=== PATIENT | female | born 1980 | race Caucasian/White ===

== ENCOUNTER 2018-05-19 11:02 | Emergency (ER) | payer OTHER ==
[2018-05-19 11:53] VITALS: BP 121/77
[2018-05-19] MEDS ORDERED: Ondansetron ODT TAB* 4 MG PO ONE (11:56)
[2018-05-19] MEDS ORDERED: NS 0.9% 1000 ML** 1,000 ML IV ONE (11:57)
[2018-05-19] MEDS ORDERED: diPHENhydraMINE IV* 50 MG in NS 0.9% 50 ML* 50 ML IVPB ONE (12:08)
[2018-05-19] MEDS ORDERED: diPHENhydraMINE IV* 50 MG/ML 1 ml VIAL (BENADRYL) ONE (12:22)
--- NOTE | 2018-05-19 13:01 | UC ---
Headache HPI - HPI Summary HPI Summary: Pt c/o sudden onset of headache that began when she woke this mrmoisés. Pt has hx of migraines but has not had one "in years". - History Of Current Complaint Chief Complaint: UCHeadache Stated Complaint: HEADACHE Time Seen by Provider: 05/19/18 11:55 Hx Obtained From: Patient Hx Last Menstrual Period: 05/01/18 ?: No Onset/Duration: Sudden Onset, Lasting Hours, Still Present Onset Of Symptoms: Sudden, Still Present Initially Headache Was: Moderate Currently Pain Is: Moderate Pain Intensity: 8 Character: Dull, Pressure, Typical Headache, Migraine Location of Headache: Diffuse, Frontal Aggravating Factor(s): Bright Lights Allevating Factor(s): Rest Associated Signs And Symptoms: Positive: Nausea - Risk Factors SAH Risk Factors: Negative Meningitis Risk Factors: Negative SDH Risk Factors: Negative Temporal Arteritis Risk Factors: Negative - Allergies/Home Medications Allergies/Adverse Reactions: Allergies Allergy/AdvReac Type Severity Reaction Status Date / Time NSAIDS (Non-Steroidal Allergy See Comment Verified 05/19/18 11:51 Anti-Inflamma Penicillins Allergy Hives Verified 05/19/18 11:51 PMH/Surg Hx/FS Hx/Imm Hx Previously Healthy: Yes Neurological History: Migraine - Surgical History Surgical History: Yes Surgery Procedure, Year, and Place: tubal. tonsillectomy - Family History Known Family History: Positive: Cardiac Disease - Social History Occupation: Employed Full-time Lives: With Family Alcohol Use: Occasionally Substance Use Type: None Smoking Status (MU): Heavy Every Day Tobacco Smoker Type: Cigarettes Amount Used/How Often: 1/2-1 PPD Have You Smoked in the Last Year: Yes Review of Systems All Other Systems Reviewed And Are Negative: Yes Constitutional: Positive: Negative Skin: Positive: Negative Eyes: Positive: Photophobia ENT: Positive: Negative Respiratory: Positive: Negative Cardiovascular: Positive: Negative Gastrointestinal: Positive: Negative Genitourinary: Positive: Negative Motor: Positive: Negative Neurovascular: Positive: Negative Musculoskeletal: Positive: Negative Neurological: Positive: Headache Psychological: Positive: Negative Is Patient Immunocompromised?: No Physical Exam Triage Information Reviewed: Yes Appearance: Ill-Appearing, Pain Distress Vital Signs: Initial Vital Signs Temp 98.2 F 05/19/18 11:46 Pulse 57 05/19/18 11:46 Resp 18 02/27/19 11:46 BP 121/77 05/19/18 11:46 Pulse Ox 100 05/19/18 11:46 Vital Signs Reviewed: Yes Eye Exam: Normal, Other - PERRLA ENT Exam: Normal Dental Exam: Normal Neck exam: Normal Respiratory Exam: Normal Cardiovascular Exam: Normal Musculoskeletal Exam: Normal Neurological Exam: Normal Psychological Exam: Normal Skin Exam: Normal Headache Course/Dx - Differential Dx/Diagnosis Differential Diagnosis/HQI/PQRI: TIA, Migraine, Tension Headache Provider Diagnosis: Migraine Discharge - Sign-Out/Discharge Documenting (check all that apply): Patient Departure All imaging exams completed and their final reports reviewed: No Studies - Discharge Plan Condition: Stable Disposition: HOME Prescriptions: Ondansetron HCl [Zofran] 8 mg PO Q8H PRN #12 tablet PRN Reason: Nausea Patient Education Materials: Migraine Headache (ED) Forms: *Gen. Provider Communication Referrals: Jordan Fritz [Primary Care Provider] - As Soon As Possible - Billing Disposition and Condition Condition: STABLE Disposition: Home
== END 2018-05-19 13:52 | disposition home or self-care (01) ==
LOC: UCCORT 11:02
DX: G43.909 Migraine, unspecified, not intractable, without status migrainosus (principal); Z88.8 Allergy status to other drugs, medicaments and biological substances; Z88.0 Allergy status to penicillin; F17.210 Nicotine dependence, cigarettes, uncomplicated
CPT/HCPCS: 96361; 96365; 99212; A9270-GY; G0463; J1200